=== PATIENT | male | born 1995 | race Caucasian/White ===

== ENCOUNTER 2018-12-24 20:58 | Emergency (ER) | payer BC ==
[~2018-12-24] VITALS: Ht 185.4 cm; Wt 90.9 kg
[2018-12-24 21:09] VITALS: BP 121/67; TEMP 99
[2018-12-24] MEDS ORDERED: PREDNISONE20 MG PO (21:29)
[2018-12-24 22:17] VITALS: PULSE 72
== END 2018-12-24 22:19 | disposition home or self-care (01) ==
LOC: COL.ER 20:58
DX: T78.40XA Allergy, unspecified, initial encounter (principal)
CPT/HCPCS: J7512